=== PATIENT | female | born 1985 | race Two or more races ===

== ENCOUNTER 2019-12-29 12:23 | Emergency (ER) | payer OTHER ==
[~2019-12-29] VITALS: Ht 154.9 cm; Wt 88.5 kg
[2019-12-29 12:32] VITALS: BP 122/91
== END 2019-12-29 15:27 | disposition home or self-care (01) ==
LOC: ER 12:23
DX: H92.01 Otalgia, right ear (principal); Z53.21 Procedure and treatment not carried out due to patient leaving prior to being seen by health care provider